=== PATIENT | female | born 1985 | race Caucasian/White ===

== ENCOUNTER 2016-03-11 19:28 | Inpatient (IN) | payer BC ==
[2016-03-11] MEDS ORDERED: NORMAL SALINE 10 ML SYRINGE FLUSH IVP PRN (19:37)
[2016-03-11] MEDS ORDERED: KETOROLAC 30 MG/1 ML VIAL IVP ONE (19:37)
[2016-03-11] MEDS ORDERED: Sodium Chloride 0.9% 1,000 ML PRIMARY IV ONE (19:37)
[2016-03-11] MEDS ORDERED: MORPHINE SULFATE 2 MG/1 ML IVP ONE (19:37)
[2016-03-11] MEDS ORDERED: ONDANSETRON 4 MG/2 ML VIAL IVP ONE (19:37)
[2016-03-11 19:59] LABS: BASOPHILS # (AUTO) 0.02 10*3/UL; BASOPHILS % (AUTO) 0.2 % (0-1); HEMATOCRIT 44.4 % (37.0-47.0); HEMOGLOBIN 15.3 g/dL (12.0-16.0); IMM GRAN % (AUTO) 0.2 % (0-5); IMM GRAN# (AUTO) 0.03 10*3/UL; LYMPHOCYTES # (AUTO) 0.66 10*3/uL; LYMPHOCYTES % (AUTO) 5.4 % (10-50); MEAN CORPUSCULAR HEMOGLOBIN 28.1 PG (27-31); MEAN CORPUSCULAR HGB CONC 34.5 g/dL (33-37); MEAN PLATELET VOLUME 9.3 FL (7.4-12.2); MONOCYTES # (AUTO) 0.55 10*3/UL (0.3-0.8); MONOCYTES % (AUTO) 4.5 % (5-15); NEUTROPHILS # (AUTO) 10.92 10*3/UL; NEUTROPHILS % (AUTO) 88.7 % (50-80); PLATELET MORPHOLOGY COMMENT NORMAL MORPHOLOGY (NORM); RDW COEFFICIENT OF VARIATION 14.3 % (11.5-14.5); RED BLOOD COUNT 5.45 10^6/uL (4.20-5.40)
[2016-03-11 20:14] LABS: BLOOD UREA NITROGEN 15 mg/dL (7-22); CHLORIDE 104 meq/L (98-112); CREATININE 0.6 mg/dL (0.50-1.20); EST GLOMERULAR FILTRATION > 60 (>60 ml/min/1.73m(2)); GLUCOSE 109 mg/dL (78-110); SODIUM 139 meq/L (135-145)
[2016-03-11 20:15] LABS: ASPARTATE AMINO TRANSFERASE 29 IU/L (8-39); BILIRUBIN,TOTAL 0.8 mg/dL (0.3-1.2); C-REACTIVE PROTEIN 1.4 mg/dL (0.0-0.9); CALCIUM 9.1 mg/dL (8.7-10.7); LACTATE 1.4 MMOL/L (0.70-2.10); MAGNESIUM 1.5 mg/dL (1.6-2.4); TOTAL PROTEIN 8.3 g/dL (6.1-8.0)
[2016-03-11] MEDS ORDERED: Magnesium Sulfate 1gm (Premix) 1 GM in Dextrose 1 BAG IV ONE (20:26)
[2016-03-11] MEDS ORDERED: Magnesium Sulfate 1gm (Premix) 100 ML IV ONE (20:40)
--- NOTE | 2016-03-11 20:41 | PDOC ---
Abdomen/Flank HPI - General Chief Complaint: General Medical Stated Complaint: N/V / Left Flank Pain Date Seen by Provider: 03/11/16 Time Seen by Provider: 19:35 Source: POSITIVE: Patient Exam Limitations: POSITIVE: No limitations Nurse's Notes Reviewed & Considered: Yes - History of Present Illness Initial Comments: The patient is a 30-year-old female who presents to the emergency department with left flank pain, nausea and vomiting. She states that earlier today she had onset of left flank pain. Since then she has had multiple episodes of vomiting. She now has some associated headache. She also describes some generalized abdominal pain which she relates to vomiting. She has had associated fevers and chills. She feels weak and lightheaded. She has a history of previous pyelonephritis in 2014 for which she required hospitalization. She states that she feels similar to how she felt at that time. She states she has not had any urinary symptoms although she does report decreased urination today. She denies diarrhea or change in BM. She states she does have some increased pain with taking a deep breath. - Patient Home Medications Home Medications: Home Medications Lisinopril 5 mg PO DAILY 12/06/14 Albuterol Sulfate [Proair Hfa] 1 - 2 puff INH Q4-6H #1 inhaler 01/10/16 Guaifenesin/Codeine Phos [Cheratussin Ac Syrup] 5 ml PO Q6H #120 ml 01/10/16 Methylprednisolone [Medrol] 4 mg PO DAILY #1 packet 01/10/16 - Patient Allergies Allergies/Adverse Reactions: Allergies Allergy/AdvReac Type Severity Reaction Status Date / Time Penicillins Allergy Severe SWELLING Verified 03/11/16 19:34 cefazolin Allergy Intermediate ITCHING Verified 03/11/16 19:34 Past Medical History - heen HEENT History: Denies History Cardiovascular History: Denies History Respiratory History: Denies History Gastrointestinal History: Other (please comment) Additional Gastrointestinal History: Gall bladder removed 2006 Genitourinary History: Kidney Stones, Nephritis, Other (please comment) 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 Endocrine History: Denies History Musculoskeletal History: Back Pain, Other (please comment) Prosthesis or Implant: No Additional Musculoskeletal History: Pain related to kidney stones Neurological History: Denies History Additional Neurological History: tylenol for headaches Blood Disorders: Denies History Psychiatric History: Denies History History of Sexually Transmitted Diseases: No Cancer History: Denies History In Past Year Been Physically Harmed or Verbally Threatened: No History of MDRO: No History of Other Communicable Diseases: No Tobacco Use: Current Every Day Smoker Alcohol Use: None Substance Use Type: None Previous Surgical History: Yes Type / Date of Surgery: ERICKA 2007. TUBAL. Left kidney biopsy Anesthesia Reactions: No Malignant Hyperthermia: No Significant Family History: Hypertension, Renal disease Past Medical History Reviewed: Reviewed - No Changes ROS - Limitations ROS Limitations: No Limitations Constitution: REPORTS: Chills, Fever Cardiovascular: REPORTS: Denies Cardiac Symptoms Respiratory: REPORTS: Hurts To Breathe. DENIES: Cough Non Productive, Cough Productive Neurological: REPORTS: Headache. DENIES: Numbness, Weakness Gastrointestinal: REPORTS: Abdominal Pain, Nausea, Vomitting. DENIES: Diarrhea , Black Stools, Bloody Stools Musculoskeletal: REPORTS: Denies MS Symptoms Genitourinary: REPORTS: Flank Pain, Other (Decreased urination). DENIES: Dysuria, Hematuria Eyes: REPORTS: Denies Symptoms ENT: REPORTS: Denies Symptoms Skin: DENIES: Rash Abdominal/Flank Pain PE - General Appearance General Appearance: POSITIVE: Alert, Cooperative, No Acute Distress, Other (She does appear ill) - HEENT HEENT: POSITIVE: Head Inspection Nml, Dry Mucous Membranes - Neck Neck: POSITIVE: Normal Inspection. NEGATIVE: Lymphadenopathy - Respiratory Respiratory: POSITIVE: No Respiratory Distress, Breath Sounds Normal - Cardiovascular Cardiovascular: POSITIVE: Regular Rate and Rhythm, Heart Sounds Normal - Abdomen Abdomen: Soft: (All Quadrants), Normal Bowel Sounds: (All Quadrants), No Distention: (All Quadrants) Additional Abdominal Details: She does have some left-sided abdominal tenderness without guarding or rebound tenderness, left CVA tenderness - Back Back: POSITIVE: CVA Tenderness (L) - Skin Skin: POSITIVE: Intact, No Rash - Extremities Extremity: Normal ROM: (All Extremities), Normal Inspection: (All Extremities) - Neurological Neurological: POSITIVE: Affect Apporpriate, Oriented X3, Other (No focal neurologic deficits) Abdomen Progress - Results Reviewed by me Xrays/CTs/US Reviewed by me: Yes Discussed with Radiologist: Yes Radiology Findings: CT scan of the abdomen and pelvis reveals no obstructive uropathy, no other acute intra-abdominal findings per radiologist. Lab Results Reviewed: Yes Lab Results:: Laboratory Results 03/11/16 03/11/16 Range/Units 19:45 21:09 WBC 12.30 H (4.8-10.8) 10^3/uL RBC 5.45 H (4.20-5.40) 10^6/uL Hgb 15.3 (12.0-16.0) g/dL Hct 44.4 (37.0-47.0) % MCV 81.5 (81-99) FL MCH 28.1 (27-31) PG MCHC 34.5 (33-37) g/dL RDW Std Deviation 41.9 (39-50) fL RDW Coeff of Nathaniel 14.3 (11.5-14.5) % Plt Count 353 H (140-350) 10*3/uL MPV 9.3 (7.4-12.2) FL Immature Gran % (Auto) 0.2 (0-5) % Neut % (Auto) 88.7 H (50-80) % Lymph % (Auto) 5.4 L (10-50) % George % (Auto) 4.5 L (5-15) % Eos % (Auto) 1.0 (0-8) % Baso % (Auto) 0.2 (0-1) % Immature Gran # (Auto) 0.03 10*3/UL Neut # (Auto) 10.92 10*3/UL Lymph # (Auto) 0.66 10*3/uL [place] # (Auto) 0.55 (0.3-0.8) 10*3/UL Eos # (Auto) 0.12 10*3/UL Baso # (Auto) 0.02 10*3/UL WBC Morphology Comment Normal morphology (NORM) Plt Morphology Comment Normal morphology (NORM) RBC Morph Comment Normal morphology (NORM) D-Dimer 0.31 (0.00-0.59) mg/L Sodium 139 (135-145) meq/L Potassium 4.0 (3.8-5.2) meq/L Chloride 104 (98-112) meq/L Carbon Dioxide 23 (23-33) meq/L Anion Gap 12 (5-20) BUN 15 (7-22) mg/dL Creatinine 0.6 (0.50-1.20) mg/dL Estimated GFR > 60 (>60 ml/min/1.73m(2)) BUN/Creatinine Ratio 25.00 H (6-20) Glucose 109 (78-110) mg/dL Calculated Osmolality 289.0 (267-292) mOsm/kg Lactic Acid 1.4 (0.70-2.10) MMOL/L Calcium 9.1 (8.7-10.7) mg/dL Magnesium 1.5 L (1.6-2.4) mg/dL Total Bilirubin 0.8 (0.3-1.2) mg/dL AST 29 (8-39) IU/L ALT 35 (9-52) IU/L Alkaline Phosphatase 80 (38-126) IU/L C-Reactive Protein 1.4 H (0.0-0.9) mg/dL Total Protein 8.3 H (6.1-8.0) g/dL Albumin 4.4 (3.5-4.8) g/dL Globulin 3.9 (2.50-4.10) g/dL Albumin/Globulin Ratio 1.10 L (1.3-2.0) mg/g Serum HCG, Qual Negative Ur Collection Type Voided specimen Urine Color Yellow Urine Clarity Slightly lauren (CLEAR) Urine pH 6.0 (5.0-8.5) Ur Specific [place] >=1.030 (1.005-1.030) U Specif Grav (Refrac) 1.032 Urine Protein >300 (NEG) mg/dl Urine Glucose (UA) Negative (NEG) mg/dL Urine Ketones Trace (NEG) Urine Occult Blood Large H (NEG) Urine Nitrate Negative (NEG) Urine Bilirubin Small (NEG) Urine Urobilinogen 0.2 (0.2) EU/dL Ur Leukocyte Esterase Negative (NEG) Urine RBC 50-100 (NONE) /hpf Urine WBC None (NONE) Ur Squamous Epith Cells Many (NONE) Ur Renal Epithelial Cell None (NONE) Urine Crystals Many Urine Bacteria None (NONE) Urine Casts None (NONE) Urine Mucus Moderate (NONE) Urine Trichomonas None (NONE) Urine Yeast None (NONE) Ur Culture Indicated? Culture not set - Patient's Progress MDM / ED Course: Blood cultures and lactate were drawn with IV start. The patient received 1 L bolus of normal saline as well as Toradol 30 mg, Zofran 4 mg and morphine 2 mg IV. She had some minimal improvement in pain. After CT her pain was intensifying she received a dose of Dilaudid 1 mg IV. Oxygen saturations dropped on room air and she was placed on oxygen. Findings were discussed with the patient. She does have microscopic hematuria which is chronic. Her white blood cell count is mildly elevated. Other blood work is essentially unremarkable. CAT scan does not show any obvious obstructive uropathy. Her clinical presentation is consistent with pyelonephritis with fever, left flank pain and elevated white count. Her urinalysis however does not reveal any obvious white blood cells or bacteria. The patient stated that last time she felt like this she was discharged home and was back within 24 hours. The decision was made to admit the patient for further treatment. I did discuss the patient with Dr. Luong. He was unsure about the status of her kidney disease. I subsequently contacted Dr. Boyle in [place] who is her drug abuse resistance education officer. He stated that she has basement membrane disease which results in chronic hematuria however is generally not a progressively worsening kidney disease and he did not feel that her current symptoms were related to this process. He recommended symptomatic treatment and thought it would be reasonable to treat the patient empirically for pyelonephritis even though her urinalysis is not consistent with this. A urine culture was done even though it didn't strictly meet criteria. She was started on Levaquin [address] Luong has agreed to admit the patient. The patient is in agreement with this plan. Patient Care Time - Estimated PCT Patient Care Time (In Minutes): 45 Vital Signs - Recent Vital Signs Vital Signs: Vital Signs (Last 8 hours) Temp Pulse Resp BP Pulse Ox 03/11/16 19:30 99.8 F H 125 H 20 114/91 95 - VS Reviewed Vital Signs Reviewed: Yes Discharge Clinical Impression: Dehydration, Flank pain Discharge Disposition: Admit to Inpatient Condition: Fair Date Decision to Admit to Inpatient: 03/11/16 Time Decision to Admit to Inpatient: 23:40
[2016-03-11 21:12] LABS: BILIRUBIN,URINE SMALL (NEG); CLARITY,URINE Slightly Clo (CLEAR); GLUCOSE, URINE (UA) NEGATIVE (NEG); LEUKOCYTE ESTERASE ,URINE NEGATIVE (NEG); NITRATE,URINE NEGATIVE (NEG); OCCULT BLOOD,URINE LARGE (NEG); PROTEIN,URINE >300 mg/dl (NEG); UROBILINOGEN,URINE 0.2 EU/dL (0.2)
[2016-03-11 21:14] LABS: URINE SAMPLE TYPE VOIDED SPECIMEN
[2016-03-11 21:15] LABS: URINE SPECIFIC GRAVITY - MAN 1.032
[2016-03-11 21:16] LABS: RBC,URINE 50-100 /hpf; SQUAMOUS EPITHELIAL CELL,UR MANY; URINE CRYSTALS MANY
--- NOTE | 2016-03-11 21:39 | DI ---
CT ABDOMEN/PELVIS W/O CONTRAST,03/11/2016 8:25 PM: Clinical History: Left flank pain. Previous Exam: November 18, 2012 Findings: Multiple helically acquired CT images are obtained through the abdomen and pelvis without contrast. T he lung bases are clear. Patient is status post cholecystectomy. The The spleen and adrenals are unremarkable. There is no hydronephrosis nor nephrolithiasis. The uterus and ovaries were grossly normal but not well evaluated. The urinary bladder is unremarkable. The appendix is unremarkable. There are a few scattered stable mesenteric lymph nodes. There is a stable fat-containing umbilical hernia. Skeletal structures are unremarkable. Impression: No obstructive uropathy.
[2016-03-11] MEDS ORDERED: HYDROmorphone 2 MG/1 ML IVP ONE (21:58)
[2016-03-11] MEDS ORDERED: Levofloxacin 500mg (Premix) 500 MG in Dextrose 1 BAG IV ONE (23:39)
[2016-03-11] MEDS ORDERED: Levofloxacin 500mg (Premix) 100 ML IV ONE (23:56)
[2016-03-12] MEDS ORDERED: Prochlorperazine Edisylate Inj 10mg/2ml vial IVP PRN (00:21)
[2016-03-12] MEDS ORDERED: NORMAL SALINE 10 ML SYRINGE FLUSH IVP PRN (00:21)
[2016-03-12] MEDS: Sodium Chloride 0.9% 1,000 ML PRIMARY IV SCH ×3 (01:05→20:04)
[2016-03-12] MEDS: MORPHINE SULFATE 2 MG/1 ML IVP PRN ×3 (02:26→17:45)
[2016-03-12 06:47] LABS: BASOPHILS # (AUTO) 0.01 10*3/UL; BASOPHILS % (AUTO) 0.1 % (0-1); EOSINOPHILS % (AUTO) 1.3 % (0-8); HEMATOCRIT 38.2 % (37.0-47.0); HEMOGLOBIN 12.6 g/dL (12.0-16.0); IMM GRAN % (AUTO) 0.3 % (0-5); IMM GRAN# (AUTO) 0.02 10*3/UL; LYMPHOCYTES # (AUTO) 0.86 10*3/uL; LYMPHOCYTES % (AUTO) 12.6 % (10-50); MEAN CORPUSCULAR HEMOGLOBIN 27.5 PG (27-31); MEAN PLATELET VOLUME 9.7 FL (7.4-12.2); MONOCYTES # (AUTO) 0.57 10*3/UL (0.3-0.8); MONOCYTES % (AUTO) 8.4 % (5-15); NEUTROPHILS # (AUTO) 5.25 10*3/UL; NEUTROPHILS % (AUTO) 77.3 % (50-80); RDW COEFFICIENT OF VARIATION 14.4 % (11.5-14.5); RED BLOOD COUNT 4.59 10^6/uL (4.20-5.40)
[2016-03-12 06:55] LABS: PLATELET MORPHOLOGY COMMENT NORMAL MORPHOLOGY (NORM)
[2016-03-12 07:09] LABS: BLOOD UREA NITROGEN 17 mg/dL (7-22); BUN/CREATININE RATIO 28.33 (6-20); CHLORIDE 106 meq/L (98-112); CREATININE 0.6 mg/dL (0.50-1.20); EST GLOMERULAR FILTRATION > 60 (>60 ml/min/1.73m(2)); POTASSIUM 3.8 meq/L (3.8-5.2); SODIUM 136 meq/L (135-145)
[2016-03-12 07:10] LABS: CALCIUM 7.1 mg/dL (8.7-10.7); GLUCOSE 81 mg/dL (78-110)
--- NOTE | 2016-03-12 07:50 | PDOC ---
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 She vomited twice , went like 7 times, liquid stool and no blood. There was no dysuria. She did report left-sided flank pain that was severe maybe 9 out of 10. Because of all the symptoms she came into the ER. She did report a fever of 101 at home. She was given pain medications and was discussed with the supervisor matrix in [place] who suggested admission here and maybe even start her on antibiotics until we see culture results. She did not vomit since she's been here, somewhat better than when she came in, her pain is less than before. She did not have a bowel movement yet. Past Medical History Medical History: Thin basement membrane disease diagnosed after biopsy in 2014 Surgical History: Tubal ligation and cholecystectomy Pertinent Family History: History of for kidney stones in her father Past Social History: She smokes half a pack a day, doesn't drink no drugs Tobacco Use: Current Every Day Smoker Substance Use Type: None Alcohol Use: None Medication / Allergies Home Medications: Home Medications Medication Instructions Recorded Confirmed Type Lisinopril 5 mg PO DAILY 12/06/14 03/11/16 History Albuterol Sulfate [Proair Hfa] 1 - 2 puff INH Q4-6H #1 inhaler 01/10/16 Clinic Guaifenesin/Codeine Phos 5 ml PO Q6H #120 ml 01/10/16 03/11/16 Clinic [Cheratussin Ac Syrup] Methylprednisolone [Medrol] 4 mg PO DAILY #1 packet 01/10/16 03/11/16 Clinic Allergies/Adverse Reactions: Allergies Allergy/AdvReac Type Severity Reaction Status Date / Time Penicillins Allergy Severe SWELLING Verified 03/12/16 08:11 cefazolin Allergy Intermediate ITCHING Verified 03/12/16 08:11 Review of Systems - Review of Systems All Systems: Reviewed & No Additional Complaints Except as Stated Exam - Vitals Vital Signs: Vital Signs Temperature 97.8 F Temperature Source Temporal Artery Scan Pulse Rate [Pulse Oximeter] 91 Respiratory Rate 20 Blood Pressure [Right Arm] 103/50 Pulse Ox 93 Oxygen Flow Rate 1 Oxygen Delivery Method Nasal Cannula Height 5 ft 7 in Weight 287 lb 3.2 oz - General General Appearance: POSITIVE: No Acute Distress, Cooperative, Obese - Head Head Exam: POSITIVE: Normal Inspection, Atraumatic - Eye Eye Exam: POSITIVE: Normal Appearance - ENT ENT Exam: POSITIVE: Normal Exam - Neck Neck Exam: POSITIVE: Normal Inspection - Respiratory Respiratory Exam: POSITIVE: Clear to Auscultation - Bilaterally - Cardiovascular Cardiovascular Exam: POSITIVE: RRR - GI/Abdominal GI/Abdominal Exam: POSITIVE: Normal Bowel Sounds, Non Tender, Non Distended, Soft Additional GI/Abdominal Exam Details: Left CVA tenderness present mild - Rectal Rectal Exam: POSITIVE: Deferred - External Exam: POSITIVE: Deferred - Extremities Extremities Exam: POSITIVE: Normal Inspection - Back Back Exam: POSITIVE: Normal Inspection - Neurological Neurological Exam: POSITIVE: Alert, Oriented x 3, Normal Gait, CN II-XII Intact , Moves All Extremities Equally - Psychiatric Psychiatric Exam: POSITIVE: Normal Affect - Integumentary Integumentary Exam: POSITIVE: Normal Color Results - Labs CBC and BMP: 03/12/16 05:40 03/12/16 05:40 Labs - Last 24 Hours: Laboratory Results 03/12/16 Range/Units 05:40 WBC 6.80 (4.8-10.8) 10^3/uL RBC 4.59 (4.20-5.40) 10^6/uL Hgb 12.6 (12.0-16.0) g/dL Hct 38.2 (37.0-47.0) % MCV 83.2 (81-99) FL MCH 27.5 (27-31) PG MCHC 33.0 (33-37) g/dL RDW Std Deviation 43.3 (39-50) fL RDW Coeff of Nathaniel 14.4 (11.5-14.5) % Plt Count 276 (140-350) 10*3/uL MPV 9.7 (7.4-12.2) FL Immature Gran % (Auto) 0.3 (0-5) % Neut % (Auto) 77.3 (50-80) % Lymph % (Auto) 12.6 (10-50) % [place] % (Auto) 8.4 (5-15) % Eos % (Auto) 1.3 (0-8) % Baso % (Auto) 0.1 (0-1) % Immature Gran # (Auto) 0.02 10*3/UL Neut # (Auto) 5.25 10*3/UL Lymph # (Auto) 0.86 10*3/uL [place] # (Auto) 0.57 (0.3-0.8) 10*3/UL Eos # (Auto) 0.09 10*3/UL Baso # (Auto) 0.01 10*3/UL WBC Morphology Comment Normal morphology (NORM) Plt Morphology Comment Normal morphology (NORM) RBC Morph Comment Normal morphology (NORM) Sodium 136 (135-145) meq/L Potassium 3.8 (3.8-5.2) meq/L Chloride 106 (98-112) meq/L Carbon Dioxide 25 (23-33) meq/L Anion Gap 5 (5-20) BUN 17 (7-22) mg/dL Creatinine 0.6 (0.50-1.20) mg/dL Estimated GFR > 60 (>60 ml/min/1.73m(2)) BUN/Creatinine Ratio 28.33 H (6-20) Glucose 81 (78-110) mg/dL Calculated Osmolality 282.0 (267-292) mOsm/kg Calcium 7.1 L (8.7-10.7) mg/dL - Imaging Status: Report Reviewed by Me (CT showed no evidence of obstructive uropathy) Assessment and Plan - Patient Problems (1) Flank pain Current Visit: Yes Status: Acute Comment: The UA does not show evidence of infection, but because of her symptoms and her previous history and after discussion with nephrology by the ER we decided to treat empirically with antibiotics until we see the culture result, if negative then will stop the antibiotics. This may be a gastroenteritis. Will Order a stool test for C. difficile (2) Gastroenteritis Current Visit: No Status: Acute Comment: The possibility in the differential, We'll cut back on hydration will feed her we'll treat her symptomatically and order stool test.
[2016-03-12] MEDS: ACETAMINOPHEN 325 MG TABLET PO PRN (15:09)
[2016-03-12] MEDS ORDERED: Levofloxacin 750mg (Premix) 750 MG in Dextrose 1 BAG IV SCH (21:00)
[2016-03-13] MEDS: MORPHINE SULFATE 2 MG/1 ML IVP PRN (00:58)
[2016-03-13 07:36] VITALS: RESP 16; TEMP 96.8
[2016-03-13] MEDS: ACETAMINOPHEN 325 MG TABLET PO PRN (08:07)
--- NOTE | 2016-03-13 09:27 | DCSUMMARY ---
Hospitalization Summary Admit Date: 03/12/16 Discharge Date: 03/13/16 Hospital Course: Discharge diagnosis 1. Nausea and vomiting resolved probably gastroenteritis 2. Thin basement membrane disease 3. 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 She came into the ER she was given fluid, pain medication had a CT there was no evidence of obstructive uropathy, the case was discussed with her special education teachers who suggested treatment empirically with antibiotics until we have culture result. Exam when I saw her she had some tenderness in the left flank but otherwise no other major abnormality on physical examination. We gave her fluid and we did continue antibiotics, blood cultures remained negative, the urine culture did not show significant growth we thought she could be discharged home as on the day of discharge she was doing better no more diarrhea no more vomiting and her pain seemed to be resolving. She did say that she always had this left flank pain and which may be questionably related to the her disease. I thought we can discharge her home follow-up with her primary Laboratory Results 03/11/16 03/11/16 03/12/16 Range/Units 19:45 21:09 05:40 WBC 12.30 H 6.80 (4.8-10.8) 10^3/uL RBC 5.45 H 4.59 (4.20-5.40) 10^6/uL Hgb 15.3 12.6 (12.0-16.0) g/dL Hct 44.4 38.2 (37.0-47.0) % MCV 81.5 83.2 (81-99) FL MCH 28.1 27.5 (27-31) PG MCHC 34.5 33.0 (33-37) g/dL RDW Std Deviation 41.9 43.3 (39-50) fL RDW Coeff of Nathaniel 14.3 14.4 (11.5-14.5) % Plt Count 353 H 276 (140-350) 10*3/uL MPV 9.3 9.7 (7.4-12.2) FL Immature Gran % (Auto) 0.2 0.3 (0-5) % Neut % (Auto) 88.7 H 77.3 (50-80) % Lymph % (Auto) 5.4 L 12.6 (10-50) % [place] % (Auto) 4.5 L 8.4 (5-15) % Eos % (Auto) 1.0 1.3 (0-8) % Baso % (Auto) 0.2 0.1 (0-1) % Immature Gran # (Auto) 0.03 0.02 10*3/UL Neut # (Auto) 10.92 5.25 10*3/UL Lymph # (Auto) 0.66 0.86 10*3/uL [place] # (Auto) 0.55 0.57 (0.3-0.8) 10*3/UL Eos # (Auto) 0.12 0.09 10*3/UL Baso # (Auto) 0.02 0.01 10*3/UL WBC Morphology Comment Normal morphology Normal morphology (NORM) Plt Morphology Comment Normal morphology Normal morphology (NORM) RBC Morph Comment Normal morphology Normal morphology (NORM) D-Dimer 0.31 (0.00-0.59) mg/L Sodium 139 136 (135-145) meq/L Potassium 4.0 3.8 (3.8-5.2) meq/L Chloride 104 106 (98-112) meq/L Carbon Dioxide 23 25 (23-33) meq/L Anion Gap 12 5 (5-20) BUN 15 17 (7-22) mg/dL Creatinine 0.6 0.6 (0.50-1.20) mg/dL Estimated GFR > 60 > 60 (>60 ml/min/1.73m(2)) BUN/Creatinine Ratio 25.00 H 28.33 H (6-20) Glucose 109 81 (78-110) mg/dL Calculated Osmolality 289.0 282.0 (267-292) mOsm/kg Lactic Acid 1.4 (0.70-2.10) MMOL/L Calcium 9.1 7.1 L (8.7-10.7) mg/dL Magnesium 1.5 L 2.0 (1.6-2.4) mg/dL Total Bilirubin 0.8 (0.3-1.2) mg/dL AST 29 (8-39) IU/L ALT 35 (9-52) IU/L Alkaline Phosphatase 80 (38-126) IU/L C-Reactive Protein 1.4 H (0.0-0.9) mg/dL Total Protein 8.3 H (6.1-8.0) g/dL Albumin 4.4 (3.5-4.8) g/dL Globulin 3.9 (2.50-4.10) g/dL Albumin/Globulin Ratio 1.10 L (1.3-2.0) mg/g Serum HCG, Qual Negative Ur Collection Type Voided specimen Urine Color Yellow Urine Clarity Slightly lauren (CLEAR) Urine pH 6.0 (5.0-8.5) Ur Specific [place] >=1.030 (1.005-1.030) U Specif Grav (Refrac) 1.032 Urine Protein >300 (NEG) mg/dl Urine Glucose (UA) Negative (NEG) mg/dL Urine Ketones Trace (NEG) Urine Occult Blood Large H (NEG) Urine Nitrate Negative (NEG) Urine Bilirubin Small (NEG) Urine Urobilinogen 0.2 (0.2) EU/dL Ur Leukocyte Esterase Negative (NEG) Urine RBC 50-100 (NONE) /hpf Urine WBC None (NONE) Ur Squamous Epith Cells Many (NONE) Ur Renal Epithelial Cell None (NONE) Urine Crystals Many Urine Bacteria None (NONE) Urine Casts None (NONE) Urine Mucus Moderate (NONE) Urine Trichomonas None (NONE) Urine Yeast None (NONE) Ur Culture Indicated? Culture not set Discharge instruction Diet regular Activity as started Medications Home Medications Medication Instructions Recorded Confirmed Type Albuterol Sulfate [Proair Hfa] 1 - 2 puff INH Q4-6H #1 inhaler 01/10/16 Clinic Acetaminophen [Tylenol] 650 mg PO Q6H PRN #20 tab 03/13/16 Rx Follow-up with her PCP in 1-2 weeks Condition at discharge was stable for discharge Exam - Vitals Vital Signs: Vital Signs Temperature 96.8 F Temperature Source Temporal Artery Scan Pulse Rate [Apical] 80 Pulse Rate [Pulse Oximeter] 82 Respiratory Rate 16 Blood Pressure [Right Arm] 118/72 Blood Pressure [Left Radial 116/74 Artery] Pulse Ox 93 Oxygen Flow Rate 1 Oxygen Delivery Method Room Air Height 5 ft 7 in Weight 291 lb 12.8 oz - General General Appearance: POSITIVE: No Acute Distress, Obese - Head Head Exam: POSITIVE: Normal Inspection, Atraumatic - Eye Eye Exam: POSITIVE: Normal Appearance - ENT ENT Exam: POSITIVE: Normal Exam - Neck Neck Exam: POSITIVE: Normal Inspection - Respiratory Respiratory Exam: POSITIVE: Clear to Auscultation - Bilaterally - Cardiovascular Cardiovascular Exam: POSITIVE: RRR - GI/Abdominal GI/Abdominal Exam: POSITIVE: Normal Bowel Sounds, Non Tender, Non Distended, Soft - Rectal Rectal Exam: POSITIVE: Deferred - External Exam: POSITIVE: Deferred - Extremities Extremities Exam: POSITIVE: Normal Inspection - Back Back Exam: POSITIVE: Normal Inspection, CVA Tenderness (L) - Neurological Neurological Exam: POSITIVE: Alert, Oriented x 3, CN II-XII Intact - Psychiatric Psychiatric Exam: POSITIVE: Normal Affect Patient Problems - Patient Problem List (1) Flank pain Status: Acute (2) Gastroenteritis Status: Acute
== END 2016-03-13 10:53 | disposition home or self-care (01) | DRG 392 ==
LOC: ER 19:28 → MED/SURG 23:41
PROVIDERS: ADMIT Internal Medicine; ATTEND Internal Medicine
DX: K52.9 Noninfective gastroenteritis and colitis, unspecified (principal); R11.2 Nausea with vomiting, unspecified; R10.32 Left lower quadrant pain; E86.0 Dehydration
CPT/HCPCS: 36415; 74176; 80048; 80053; 81001; 81003; 83605; 83735; 84703; 85025; 85379; 86140; 87040; 87088; 94761; 96361; 96365; 96375; 99285; J0780; J1170; J1885; J1956; J2270; J2405; J3475; J7030

== ENCOUNTER → 2016-07-09 | Outpatient (CLI) | payer OTHER, BC ==
[2016-07-09 11:30] LABS: BILIRUBIN,URINE SMALL (NEG); GLUCOSE, URINE (UA) NEGATIVE (NEG); NITRATE,URINE NEGATIVE (NEG); OCCULT BLOOD,URINE LARGE (NEG); PH,URINE 5.5 (5.0-8.5); PROTEIN,URINE >300 mg/dl (NEG)
[2016-07-09 11:43] LABS: CLARITY,URINE SLIGHTLY CLOUDY (CLEAR); COLOR,URINE BROWN
[2016-07-09 11:44] LABS: RBC,URINE 50-75 /hpf; SQUAMOUS EPITHELIAL CELL,UR FEW; URINE SAMPLE TYPE CLEAN CATCH URINE
[2016-07-09 11:49] LABS: BLOOD UREA NITROGEN 14 mg/dL (7-22); BUN/CREATININE RATIO 23.33 (6-20); CALCIUM 9.4 mg/dL (8.7-10.7); EST GLOMERULAR FILTRATION > 60 (>60 ml/min/1.73m(2)); PHOSPHORUS 4.1 mg/dl (2.4-4.3); SERUM ALBUMIN 3.9 g/dL (3.5-4.8)
== END ==
LOC: LAB 11:02
PROVIDERS: ATTEND Internal Medicine Nephrology
DX: N18.1 Chronic kidney disease, stage 1 (principal)
CPT/HCPCS: 36415; 80069; 81001; 82565; 84156